=== PATIENT | female | born 2000 | race Hispanic/Latino ===

== ENCOUNTER 2019-05-16 20:32 | Outpatient (AMB) | payer MEDICAID, SELFPAY ==
[2019-05-16 21:02] VITALS: BP 110/66; PULSE 122; RESP 20; TEMP 37.9; O2SAT 96; BMI 23.6
--- NOTE | 2019-05-16 21:02 | UCVISIT ---
Intake Ht./Wt. Decline/Exclusions Patient Declined Height and Weight this visit: No PT Meets exclusion criteria: No Vital Signs 05/16/19 21:02 Height 1.6 m Height Method Measured Weight 60.328 kg Weight Measurement Method Standing Scale BMI 23.6 Temp 100.2 F Temp Source Temporal Artery Scan Pulse 122 H Pulse Source Monitor Respiration 20 BP 110/66 Blood Pressure Source Automatic Cuff Blood Pressure Location Right Upper Arm Position Sitting Pulse Oximetry (%) 96 Oxygen Delivery Method Room Air Intake Zika Travel: No Been in contact w/anyone who has been Dx w/Zika Virus: No Been in contact w/anyone sick during travel outside country: No Patient >or equal to 18 years BMI outside of range 18.5-24.9: No Visit Reasons: UC Nausea/vomiting Primary Care Provider: Yudith Allen Is patient in pain?: Yes Pain Location:: head/throat [place]ard-[place]son/Numerical: 6 Pain Scale Used: Numeric (1 - 10) Triage Triage Allergy / Med Rec Allergies No Known Allergies Allergy (Verified 05/16/19 21:08) Band Placement: Patient Identification KAJAL: [id number] Arrival Mode of Arrival: Private Vehicle Method of Arrival: Ambulatory Accompanied By: Self and Parent PCP or OBGYN visit in last 3 months: No Language Preferred Language: Slovenian Management Instructor Required: No Female History Now: No Last Menstrual Period: 04/28/19 : No Social History Alcohol / Drugs Hx Alcohol Use: No Hx Substance Use: No Safety Do You Feel Safe at Home: Yes Authorities Contacted: N/A Estrada Fall Scale Special Populations Patient Comatose, Paralyzed or Immobile: No Patient Under the Age of 44 Years Old: No Assessment History of falling; immediate or within 3 months: No Secondary diagnosis: No Ambulatory aid: None IV Infusion: No Gait/Transferring: Normal/bedrest/immobile Mental Status: Oriented to own ability Score Score: 0 Risk Level/Action Risk Level: Low Risk Action: Good Basic Nursing Care Fall Star Level 1 Fall Star Level 1: Yes Patient Education Topic Education Topics: Discharge Instructions and Plan of Care Teaching Recipient: Patient Readiness, Motivation to Learn: Active Methods: Verbal instruction and Hand Out Educ Materials Suggested by INFO Button/Rx Monograph Given: No Response: Verbalize Understanding Management Instructor Required: No [facility] PM Hx Congestive Heart Failure: No Hx Diabetes Mellitus Type 1: No Hx Diabetes Mellitus Type 2: No Hx Renal Disease: No Hx Chronic Obstructive Pulmonary Disease (COPD): No Past Medical History Reviewed and agree with Nursing documentation.: Yes Past Medical History History Provided By: Family Member (mother ) and Patient Past Medical History: No Cardiac Medical History Hx Congestive Heart Failure: No Endocrine Medical History Hx Diabetes Mellitus Type 1: No Hx Diabetes Mellitus Type 2: No Genitourinary Medical History Hx Renal Disease: No Respiratory Medical History Hx COPD: No HPI Nausea/Vomiting History of Present Illness Details: 19-year-old female complains of fever body ache and sore throat with cough for 4 days. Patient states was here yesterday due to cough and fever but did not get any medication and feels worse today. Patient states now having nausea and vomiting with 3 episodes of vomiting for 1 day. Current symptoms: Reports nausea, Reports vomiting and Reports fever(s) Associated symptoms: Denies chest pain and Reports headache(s) Review of Systems (UC) Const Constitutional: Reports body ache, Reports chills, Reports fever(s) and Reports headache(s) Eyes Eyes: Denies blurry vision ENT Ears. Nose, Mouth, and Throat: Reports headache(s) and Reports sore throat Card Cardiovascular: Denies chest pain and Denies shortness of breath Resp Respiratory: Reports cough and Denies shortness of breath GI Gastrointestinal: Reports nausea and Reports vomiting Neuro Neurologic: Reports headache(s) Exam (UC) General Appearance: alert, in no apparent distress and comfortable Head exam: normocephalic and normal inspection Eye exam: Reports normal appearance ENT exam: Present normal exam, normal external ear exam, TM's normal bilaterally and nasal discharge Mouth exam: normal external inspection Throat exam: tonsillar erythema (Tonsils erythematous 1+ no exudates) Neck Exam: Present normal inspection and non-tender SPO2%: 96% SPO2 type: Room Air SPO2% Normal/Abnormal: Normal Respiratory exam: Present normal lung sounds bilaterally, normal respiratory effort and able to speak in complete sentences Cardiovascular exam: Present regular rate and regular rhythm Neurological Exam: Present alert, awake and oriented X3 Psychiatric exam: Present normal affect and normal mood Office Procedures UC Level of Care Nursing/Assessment/Reassessment Patient Status: Established Patient Nursing Assessment/Reassessment: Triage Asessment, Initial Vital Signs and RN General Assessments Coordination of Care: DC Instructions Simple 1-2 sets Medications: PO Meds Established Patient Charge Established Patient Point Assignment: 45 Established Patient Point Assignment: EP Level 2 (40-75) Procedures: Pulse Ox reading: Yes Office Meds ibuprofen Performing Provider: Kristy Lester PA-C (PA) Administered by: Luis Eduardo Shaw RN on 05/16/19 21:44 Dose Route Admin Location Lot Number Expiration Date [place] [employer] 600 mg PO ondansetron Performing Provider: Kristy Lester PA-C (PA) Administered by: Luis Eduardo Shaw RN on 05/16/19 21:44 Dose Route Admin Location Lot Number Expiration Date [employer] 4 mg PO Assessment and Plan Assessment & Plan (1) Nausea and vomiting: Qualifiers: Vomiting Intractability: non-intractable Vomiting type: unspecified Qualified Code(s): R11.2 - Nausea with vomiting, unspecified (2) Fever: Qualifiers: Fever type: due to other condition Qualified Code(s): R50.81 - Fever presenting with conditions classified elsewhere (3) Pharyngitis: Qualifiers: Pharyngitis/tonsillitis etiology: other specified organisms Qualified Code(s): J02.8 - Acute pharyngitis due to other specified organisms Plan - Kristy Lester PA-C (PA): Patient is advised to increase fluids as much as possible Gatorade and Pedialyte Take medication as prescribed Follow-up with PCP in 3 to 5 days if no improvement. ER precautions given to patient if any chest pain shortness of breath or wheezing or symptoms worsen and persist go to ER patient states she understands the precautions. Plan Details Other Medications: New: amoxicillin 500 mg PO TID 21 tabs 0RF ondansetron HCl (Zofran) 4 mg PO TID 3 days PRN 9 tabs 0RF nausea and vomiting promethazine-DM 6.25-15 mg/5 mL 5 mL PO Q6H 240 mL 0RF Discontinued: ondansetron Discontinued Reason: Office Medication has been Documented as given 4 mg PO ONCE 1 tab 0RF ibuprofen Discontinued Reason: Office Medication has been Documented as given 600 mg PO ONCE 1 tab 0RF Other Orders: Orders: UC ibuprofen 600 mg tablet Today UC ondansetron 4 mg disintegrating tablet Today Primary Care Provider: Yudith Allen Instructions: Sore Throat ED Fever Unconf Cause ED Nausea Vomiting Additional Information PA/[employer] Supervising Physician: Saroj Graves [facility] Evaluation Discharge Information Seen, Treated and Released by Provider: No Left Prior to Receiving Discharge Instructions: No Transfer to Outside Facility: No Vital Signs Vitals Signs N/A: Yes Pain Pain Medication / Other Intervention Provided: No Medication Medication Given this Visit: No Discharge Information Condition on Discharge: Stable Mode of Discharge: Ambulatory Discharge Transportation: Private Vehicle Instructions Management Instructor Required: No Discharge Instructions Given To: Patient Was Follow up Care Ordered: Yes Verbalizes Understanding of Discharge Instructions: Yes [facility] information card provided?: Yes Patient plan follow up w/PCP for [facility]: No
== END 2019-05-16 22:00 | disposition home or self-care (01) ==
PROVIDERS: PCP Physician Assistant; Referring Provider Physician Assistant; Visit Provider Physician Assistant